=== PATIENT | female | born 1965 | race Caucasian/White ===

== ENCOUNTER → 2016-07-02 | Outpatient (CLI) | payer MEDICARE | LOC: WI 10:48 | PROVIDERS: ATTEND Nurse Practitioner | DX: Z12.31 Encounter for screening mammogram for malignant neoplasm of breast (principal) | CPT/HCPCS: 77067; G0202 ==

== ENCOUNTER 2016-07-08 11:28 | Day surgery (SDC) | payer MEDICARE ==
[~2016-07-08 11:28] MED LIST: PROPOFOL INJ 200 MG/20 ML VIAL IV ONE
--- NOTE | 2016-07-08 13:59 | Operative Report ---
Operative Report DATE OF SURGERY: 07/08/16 Operative Report: The risks benefits and alternatives of the procedure explained to the patient in detail and informed consent is obtained that GIF Olympus video scope was inserted into the patient's mouth and hypopharynx the esophagus is identified intubated and insufflated the scope was then advanced through the esophagus stomach and duodenum retroflexion maneuver is done the esophagus stomach and first and second portions of the duodenum examined PREOPERATIVE DIAGNOSIS: Dysphagia. Preop :anorexia and bulimia. Takes potassium pills POSTOPERATIVE DIAGNOSIS: Esophageal ulceration likely due to pill induced esophagitis. Biopsies obtained rule out Monroy's esophagus, mild stricture noted. Hiatal hernia. Gastritis status post biopsy rule out Helicobacter pylori OPERATION: EGD with biopsy SURGEON: CHAN AGUIAR ANESTHESIA: LMAC TISSUE REMOVED OR ALTERED: Esophageal specimens obtained ;. rule out peptic stricture rule out Monroy's esophagus. Gastritis rule out Helicobacter pylori COMPLICATIONS: None. ESTIMATED BLOOD LOSS: none. INTRAOPERATIVE FINDINGS: Likely pill-induced esophagitis. Hiatal hernia. Stricture noted. Gastritis PROCEDURE: Patient tolerated the procedure well. No immediate postprocedure complications are noted. Patient is discharged in good condition. Discharge date 07/08/2016. Discharge diet: Regular. Discharge activity: Regular. Patient does have a 2-3 week follow-up to discuss findings Discontinue Potassium supplementation We'll await on biopsies Patient is instructed to call the office or proceed to the emergency room should there be any further problems or questions
[2016-07-08 14:42] VITALS: BP 104/77
== END 2016-07-08 14:35 | disposition home or self-care (01) ==
LOC: END 11:28
PROVIDERS: ATTEND Internal Medicine Gastroenterology
PROC: 0DB48ZX Excision of Esophagogastric Junction, Via Natural or Artificial Opening Endoscopic, Diagnostic (ICD-10-PCS; 2016-07-08)
PROC: 0DB68ZX Excision of Stomach, Via Natural or Artificial Opening Endoscopic, Diagnostic (ICD-10-PCS; principal; 2016-07-08 14:30)
DX: K29.50 Unspecified chronic gastritis without bleeding (principal); K22.2 Esophageal obstruction; K44.9 Diaphragmatic hernia without obstruction or gangrene; G40.909 Epilepsy, unspecified, not intractable, without status epilepticus; Z79.82 Long term (current) use of aspirin; Z79.899 Other long term (current) drug therapy; Z80.0 Family history of malignant neoplasm of digestive organs; Z88.2 Allergy status to sulfonamides
CPT/HCPCS: 43239; 88305 ×2; J2704

== ENCOUNTER 2016-11-18 08:18 | Emergency (ER) | payer MEDICARE ==
[2016-11-18] MEDS ORDERED: ONDANSETRON 4 MG TAB.RAPDIS PO ONE (08:58)
--- NOTE | 2016-11-18 09:25 | ER Document Report ---
ED GI/ - General Mode of Arrival: Ambulatory Information source: Patient TRAVEL OUTSIDE OF THE [place] IN LAST 30 DAYS: No - HPI Patient complains to provider of: Other - nausea Associated symptoms: Other - See above - General Chief Complaint: Nausea Stated Complaint: Nausea Time Seen by Provider: 11/18/16 08:57 Notes: Patient is a 50 year old female, with a past medical history including anxiety and bipolar disorder, who presents to the emergency department complaining of nausea. Patient reports she has not felt right for the past month and that it was been worsening. Patient states she was on antibiotics recently and has been taking Levoquin. Patient reports she was seen for a yeast infection by her PCP last week but does not know if she was given anti-fungal medication or not. Patient complains of dry throat and feeling off balance. Patient was told to come to the ED if anything worsened. Patient states that she "feels in a whirl" . PCP: Dr. Chantale Gong ([facility]) - Related Data Allergies/Adverse Reactions: ampicillin [Ampicillin] Allergy (Severe, Verified 11/18/16 08:21) Anaphylaxis ciprofloxacin [From Cipro] Allergy (Severe, Verified 11/18/16 08:21) Anaphylaxis ciprofloxacin HCl [From Cipro] Allergy (Severe, Verified 11/18/16 08:21) Anaphylaxis diphenhydramine HCl [From Benadryl] Allergy (Severe, Verified 11/18/16 08:21) Anxiety Penicillins Allergy (Severe, Verified 11/18/16 08:21) Anaphylaxis Sulfa (Sulfonamide Antibiotics) Allergy (Severe, Verified 11/18/16 08:21) Anaphylaxis Home Medications: Current Home Medications Meclizine HCl 25 mg PO TID 11/18/16 [History] Ondansetron [Zofran Odt] 8 mg PO TID PRN 11/18/16 [History] Ropinirole HCl 1 mg PO TID 11/18/16 [History] Past Medical History - General Information source: Patient - Social History Smoking Status: Unknown if Ever Smoked Family History: Reviewed & Not Pertinent - Past Medical History Cardiac Medical History: Reports: Hx Hypertension Pulmonary Medical History: Reports: Hx Pneumonia - HX Neurological Medical History: Reports: Hx Migraine, Hx Seizures - states she had had one seizure in past Endocrine Medical History: Reports: Hx Hypothyroidism Renal/ Medical History: Reports: Hx Ovarian Cysts Psychiatric Medical History: Reports: Hx Bipolar Disorder, Hx Depression Past Surgical History: Reports: Hx Appendectomy, Hx Section - x2, Hx Cholecystectomy, Hx Tonsillectomy - Immunizations Hx Diphtheria, Pertussis, Tetanus Vaccination: Yes Review of Systems - Review of Systems Constitutional: No symptoms reported EENT: See HPI, Throat pain - dry Cardiovascular: No symptoms reported Respiratory: No symptoms reported Gastrointestinal: See HPI, Nausea Genitourinary: No symptoms reported Female Genitourinary: No symptoms reported Musculoskeletal: No symptoms reported Skin: No symptoms reported Hematologic/Lymphatic: No symptoms reported Neurological/Psychological: See HPI, Other - off balance -: Yes All other systems reviewed and negative Physical Exam - Vital signs Interpretation: Normal - General General appearance: Alert, Anxious - can't sit still - HEENT Head: Normocephalic, Atraumatic Mucous membranes: Dry Pharynx: Other - White adherent material on tongue and posterior pharynx Neck: No: Lymphadenopathy - Respiratory Respiratory status: No respiratory distress Chest status: Nontender Breath sounds: Normal Chest palpation: Normal - Back Back: Normal, Nontender - Extremities General upper extremity: Normal inspection General lower extremity: Normal inspection - Neurological Neuro grossly intact: Yes Cognition: Normal Orientation: AAOx4 [place] Coma Scale Eye Opening: Spontaneous [place] Coma Scale Verbal: Oriented [place] Coma Scale Motor: Obeys Commands Judith Coma Scale Total: 15 Speech: Normal - Psychological Associated symptoms: Normal affect, Normal mood - Skin Skin Temperature: Warm Skin Moisture: Dry Skin Color: Normal Course - Consults Dr. Gong Time consulted: 09:27 - Vital Signs Vital signs: Temp Pulse Resp BP Pulse Ox 87.8 F L 99 18 133/83 H 100 11/18/16 08:21 11/18/16 08:21 11/18/16 08:21 11/18/16 08:21 11/18/16 08:21 - Consults Dr. Gong Reason for consultation: 11/18/16 09:29 Discussed patient's previous treatments by Dr. Gong who states patient was given Clotrimazole lozenges but has not been on any systemic anti- fungal treatment. ([facility]) Discharge - Discharge Clinical Impression: Oral pharyngeal candidiasis Bipolar disorder Qualifiers: Active/Remission status: currently active Current bipolar episode type: hypomanic Qualified Code(s): F31.0 - Bipolar disorder, current episode hypomanic Anxiety disorder Qualifiers: Anxiety disorder type: generalized anxiety disorder Qualified Code(s): F41.1 - Generalized anxiety disorder Condition: Stable Disposition: HOME, SELF-CARE Additional Instructions: Your exam shows oral candidiasis. The treatment for this would be 2 weeks of Diflucan. You are given today's dose, and a prescription to start tomorrow. Continue to drink plenty of water every day. Follow-up with your doctor Friday to recheck your oral yeast infection. Prescriptions: Fluconazole [Diflucan 100 Mg Tablet] 100 mg PO DAILY #14 tablet Scribe Attestation: 11/18/16 09:35 (SHANE KINCAID) Scribe Documentation - Scribe Written by Erica:: erica Vasquez, 11/18/16, 0926 acting as scribe for :: Enrique
[2016-11-18] MEDS ORDERED: LORAZEPAM 1 MG TABLET PO ONE (09:29)
[2016-11-18] MEDS ORDERED: FLUCONAZOLE 100 MG TABLET PO ONE (09:30)
[2016-11-18 09:52] VITALS: BP 132/80
== END 2016-11-18 09:45 | disposition home or self-care (01) ==
LOC: ER 08:18
DX: B37.0 Candidal stomatitis (principal); F41.1 Generalized anxiety disorder; F31.0 Bipolar disorder, current episode hypomanic; R11.0 Nausea; R29.818 Other symptoms and signs involving the nervous system; I10 Essential (primary) hypertension; Z88.8 Allergy status to other drugs, medicaments and biological substances; Z87.892 Personal history of anaphylaxis; Z88.0 Allergy status to penicillin; Z88.1 Allergy status to other antibiotic agents; Z88.2 Allergy status to sulfonamides; Z90.49 Acquired absence of other specified parts of digestive tract
CPT/HCPCS: 99283; A9270 ×3; S0119

== ENCOUNTER 2016-11-27 20:49 | Emergency (ER) | payer MEDICARE ==
--- NOTE | 2016-11-27 21:03 | ER Document Report ---
ED General - General Stated Complaint: CONFUSSION Time Seen by Provider: 11/27/16 20:54 Notes: Old female with extensive history of prescription medication alcohol abuse and apparent eating disorder per her presents with altered mental status. states that she has been walking around the room like a zombie on my as how she has for the past 3 nights when he gets home from work. She has had falls and imbalance and has been "talking crazy." He is concerned about her abusing her prescription meds. He is not concerned about suicidality. The patient to me states that she felt like her sugar was dropping but it was not. She is a little confused. She denies taking her medications tonight but she did take a Xanax and a Phenergan at 8:00 from what she told paramedics. She adamantly denies suicidal ideation. TRAVEL OUTSIDE OF THE [place] IN LAST 30 DAYS: No - Related Data Allergies/Adverse Reactions: ampicillin [Ampicillin] Allergy (Severe, Verified 11/18/16 08:21) Anaphylaxis ciprofloxacin [From Cipro] Allergy (Severe, Verified 11/18/16 08:21) Anaphylaxis ciprofloxacin HCl [From Cipro] Allergy (Severe, Verified 11/18/16 08:21) Anaphylaxis diphenhydramine HCl [From Benadryl] Allergy (Severe, Verified 11/18/16 08:21) Anxiety Penicillins Allergy (Severe, Verified 11/18/16 08:21) Anaphylaxis Sulfa (Sulfonamide Antibiotics) Allergy (Severe, Verified 11/18/16 08:21) Anaphylaxis Past Medical History - Social History Smoking Status: Former Smoker Family History: Reviewed & Not Pertinent - Past Medical History Cardiac Medical History: Reports: Hx Hypertension Denies: Hx Heart Attack Pulmonary Medical History: Reports: Hx Pneumonia - HX Denies: Hx Asthma, Hx Bronchitis, Hx COPD Neurological Medical History: Reports: Hx Migraine, Hx Seizures - states she had had one seizure in past Endocrine Medical History: Reports: Hx Hypothyroidism Renal/ Medical History: Reports: Hx Ovarian Cysts. Denies: Hx Peritoneal Dialysis Psychiatric Medical History: Reports: Hx Bipolar Disorder, Hx Depression Past Surgical History: Reports: Hx Appendectomy, Hx Section - x2, Hx Cholecystectomy, Hx Tonsillectomy. Denies: Hx Bowel Surgery, Hx Hysterectomy, Hx Mastectomy, Hx Tubal Ligation - Immunizations Hx Diphtheria, Pertussis, Tetanus Vaccination: Yes Review of Systems - Review of Systems Notes: REVIEW OF SYSTEMS GEN: Denies fever, chills, weight loss ENT: Denies sore throat, nasal discharge, ear pain EYES: Denies blurry vision, eye pain, discharge CV: Denies chest pain, palpitations, edema RESP: Denies cough, shortness of breath, wheezing GI: Denies abdominal pain, nausea, vomiting, diarrhea MSK: Denies joint pain/swelling, edema, SKIN: Denies rash, skin lesions LYMPH: Denies swollen glands/lymph nodes NEURO: Denies headache, focal weakness or numbness, dizziness PSYCH: Denies depression, suicidal or homicidal ideation PHYSICAL EXAMINATION General: No acute distress, well-nourished Head: Atraumatic, normocephalic ENT: Mouth normal, oropharynx moist, no exudates or tonsillar enlargement Eyes: Conjunctiva normal, pupils equal, lids normal Neck: No JVD, supple, no guarding CVS: Normal rate, regular rhythm, no murmurs Resp: No resp distress, equal and normal breath sounds bilaterally GI: Nondistended, soft, no tenderness to palpation, no rebound or guarding Ext: No deformities, no edema, normal range of motion in upper and lower ext Back: No CVA or midline TTP Skin: No rash, warm Lymphatic: No lymphadeopathy noted Neuro: Awake, alert. Face symmetric. GCS 15. Slurred speech. No nystagmus. Physical Exam - Vital signs Vitals: Temp Pulse Resp BP Pulse Ox 97.6 F 88 16 106/70 99 11/27/16 21:00 11/27/16 21:00 11/27/16 21:00 11/27/16 21:00 11/27/16 21:00 Course - Re-evaluation Re-evalutation: 11/27/16 21:05 51-year-old female presents with slurred speech and slight altered mental status in the setting of known history of addiction. She does not have a particular toxidrome and looks overall quite well. I believe this is in fact a Xanax and Phenergan ingestion does not seem to be an intentional overdose. I had a lengthy conversation with her by phone during which I expressed my concerns. He was initially reticent to come shredder picker the patient, and seems exasperated by her multiple issues. He agreed to come pick her up, and when he gets her I will speak with him about outpatient management of her many psychiatric problems. At this point she will be medically stable for discharge soon. - Vital Signs Vital signs: Temp Pulse Resp BP Pulse Ox 97.6 F 88 16 106/70 99 11/27/16 21:00 11/27/16 21:00 11/27/16 21:00 11/27/16 21:00 11/27/16 21:00 Discharge - Discharge Clinical Impression: Benzodiazepine causing adverse effect in therapeutic use Qualifiers: Encounter type: initial encounter Qualified Code(s): T42.4X5A - Adverse effect of benzodiazepines, initial encounter Condition: Good Disposition: HOME, SELF-CARE Additional Instructions: Seems that your medications are having adverse effects. This may be because you are taking too much, combining them improperly or taking them at the wrong times. It is also concerned about possible eating disorder. All of this together means that you need to contact her primary care doctor as soon as possible for a follow-up appointment to manage her prescriptions and arrange for some outpatient therapy. Please return to the ER immediately if you feel confused, dizzy or have any thoughts of harming herself or anyone else.
[2016-11-27 22:53] VITALS: BP 110/68
== END 2016-11-27 22:45 | disposition home or self-care (01) ==
LOC: ER 20:49
DX: R41.0 Disorientation, unspecified (principal); R47.81 Slurred speech; T42.4X5A Adverse effect of benzodiazepines, initial encounter; I10 Essential (primary) hypertension; F50.9 Eating disorder, unspecified; Z79.899 Other long term (current) drug therapy; Z87.892 Personal history of anaphylaxis; Z88.0 Allergy status to penicillin; Z88.1 Allergy status to other antibiotic agents; Z88.8 Allergy status to other drugs, medicaments and biological substances; Z88.2 Allergy status to sulfonamides; Z87.891 Personal history of nicotine dependence
CPT/HCPCS: 99285

== ENCOUNTER 2016-12-15 13:18 | Emergency (ER) | payer MEDICARE ==
--- NOTE | 2016-12-15 13:30 | ER Document Report ---
ED General - General Chief Complaint: Nausea Stated Complaint: MEDICATION WITHDRAWAL Time Seen by Provider: 12/15/16 13:27 Notes: The patient is a 51-year-old female, past medical history psychiatric illnesses , presents with nausea after her prazosin, benztropine, buspirone, mitrazapine and ropinirole were stopped by her primary care physician 3 days ago. She was started on Prozac instead. She denies hallucinations, suicidal ideations, homicidal ideations, seizures, feelings of tremulousness, chest pain, shortness of breath, vomiting, abdominal pain or diarrhea. TRAVEL OUTSIDE OF THE [place] IN LAST 30 DAYS: No - Related Data Allergies/Adverse Reactions: ampicillin [Ampicillin] Allergy (Severe, Verified 11/18/16 08:21) Anaphylaxis ciprofloxacin [From Cipro] Allergy (Severe, Verified 11/18/16 08:21) Anaphylaxis ciprofloxacin HCl [From Cipro] Allergy (Severe, Verified 11/18/16 08:21) Anaphylaxis diphenhydramine HCl [From Benadryl] Allergy (Severe, Verified 11/18/16 08:21) Anxiety Penicillins Allergy (Severe, Verified 11/18/16 08:21) Anaphylaxis Sulfa (Sulfonamide Antibiotics) Allergy (Severe, Verified 11/18/16 08:21) Anaphylaxis Past Medical History - General Information source: Patient, Emergency Med Personnel - Social History Smoking Status: Current Every Day Smoker Family History: Reviewed & Not Pertinent - Past Medical History Cardiac Medical History: Reports: Hx Hypertension Denies: Hx Heart Attack Pulmonary Medical History: Reports: Hx Pneumonia - HX Denies: Hx Asthma, Hx Bronchitis, Hx COPD Neurological Medical History: Reports: Hx Migraine, Hx Seizures - states she had had one seizure in past Endocrine Medical History: Reports: Hx Hypothyroidism Renal/ Medical History: Reports: Hx Ovarian Cysts. Denies: Hx Peritoneal Dialysis Psychiatric Medical History: Reports: Hx Bipolar Disorder, Hx Depression Past Surgical History: Reports: Hx Appendectomy, Hx Section - x2, Hx Cholecystectomy, Hx Tonsillectomy. Denies: Hx Bowel Surgery, Hx Hysterectomy, Hx Mastectomy, Hx Tubal Ligation - Immunizations Hx Diphtheria, Pertussis, Tetanus Vaccination: Yes Review of Systems - Review of Systems Notes: REVIEW OF SYSTEMS: CONSTITUTIONAL: -fevers, -chills EENT: -eye pain, -difficulty swallowing, -nasal congestion CARDIOVASCULAR:-chest pain, -syncope. RESPIRATORY: -cough, -SOB GASTROINTESTINAL: -abdominal pain, +nausea, -vomiting, -diarrhea GENITOURINARY: -dysuria, -hematuria MUSCULOSKELETAL: -back pain, -neck pain SKIN: -rash or skin lesions. HEMATOLOGIC: -easy bruising or bleeding. LYMPHATIC: -swollen, enlarged glands. NEUROLOGICAL: -altered mental status or loss of consciousness, -headache, - neurologic symptoms PSYCHIATRIC: -anxiety, -depression. ALL OTHER SYSTEMS REVIEWED AND NEGATIVE. Physical Exam - Vital signs Vitals: Temp Pulse Resp BP Pulse Ox 98.7 F 69 16 103/55 L 100 12/15/16 13:33 12/15/16 13:12/15/16 13:12/15/16 13:12/15/16 13:33 - Notes Notes: PHYSICAL EXAMINATION: GENERAL: Well-appearing, well-nourished and in no acute distress. HEAD: Atraumatic, normocephalic. EYES: Pupils equal round and reactive to light, extraocular movements intact, sclera anicteric, conjunctiva are normal. ENT: nares patent, oropharynx clear without exudates. Moist mucous membranes. NECK: Normal range of motion, supple without lymphadenopathy LUNGS: Breath sounds clear to auscultation bilaterally and equal. No wheezes rales or rhonchi. HEART: Regular rate and rhythm without murmurs ABDOMEN: Soft, nontender, normoactive bowel sounds. No guarding, no rebound. No masses appreciated. EXTREMITIES: Normal range of motion, no pitting or edema. No cyanosis. NEUROLOGICAL: Cranial nerves grossly intact. Normal speech, normal gait. Normal sensory and motor exams. PSYCH: Normal mood, normal affect. SKIN: Warm, Dry, normal turgor, no rashes or lesions noted. Course - Re-evaluation Re-evalutation: Patient no longer feeling nauseous after Zofran provided by EMS. None of her medications that were stopped can lead to life-threatening illnesses. She has no evidence of benzodiazepine or alcohol withdrawal at this time. Will have her follow-up with her primary care physician to discuss medication management peer - Vital Signs Vital signs: Temp Pulse Resp BP Pulse Ox 98.7 F 69 16 103/55 L 100 12/15/16 13:33 12/15/16 13:33 12/15/16 13:33 12/15/16 13:33 12/15/16 13:33 Discharge - Discharge Clinical Impression: Nausea Medication withdrawal Qualifiers: Substance type: other psychoactive substance Qualified Code(s): F19.939 - Other psychoactive substance use, unspecified with withdrawal, unspecified Condition: Stable Disposition: HOME, SELF-CARE Additional Instructions: You may take Zofran to help with any nausea. Your medication withdrawal is not life-threatening. Speech your primary care physician and psychiatrist to discuss medication management. Prescriptions: Ondansetron [Zofran Odt 4 mg Tablet] 1 - 2 tab PO Q4H PRN #15 tab.rapdis PRN Reason: For Nausea/Vomiting Referrals: GUANAKO MILLS NP-C [Primary Care Provider] - Follow up as needed
[2016-12-15 13:34] VITALS: BP 103/55
== END 2016-12-15 14:03 | disposition home or self-care (01) ==
LOC: ER 13:18
DX: F19.939 Other psychoactive substance use, unspecified with withdrawal, unspecified (principal); R11.0 Nausea; Z88.8 Allergy status to other drugs, medicaments and biological substances; F17.200 Nicotine dependence, unspecified, uncomplicated; Z87.892 Personal history of anaphylaxis; Z88.2 Allergy status to sulfonamides; Z88.0 Allergy status to penicillin; Z88.1 Allergy status to other antibiotic agents; I10 Essential (primary) hypertension
CPT/HCPCS: 99283

== ENCOUNTER → 2017-01-13 | Outpatient (CLI) | payer MEDICARE ==
[2017-01-13 13:09] LABS: ABSOLUTE EOSINOPHILS # (AUTO) 0.1 10^3/uL (0.0-0.6); ABSOLUTE LYMPHOCYTES (AUTO) 1.9 10^3/uL (0.5-4.7); ABSOLUTE MONOCYTES (AUTO) 0.4 10^3/uL (0.1-1.4); ABSOLUTE NEUT (AUTO) 3.2 10^3/uL (1.7-8.2); BASOPHILS % (AUTO) 0.5 % (0-2); EOSINOPHILS % (AUTO) 2.1 % (0-6); HEMATOCRIT 37.2 % (36.0-47.0); HEMOGLOBIN 12.6 g/dL (12.0-15.5); HGB HCT DIFFERENCE 0.6; LYMPHOCYTES % (AUTO) 33.1 % (13-45); MEAN CORPUSCULAR HEMOGLOBIN 31.3 pg (27.0-33.4); MEAN CORPUSCULAR HGB CONC 33.9 g/dL (32.0-36.0); MEAN CORPUSCULAR VOLUME 92 fl (80-97); MONOCYTES % (AUTO) 7.5 % (3-13); RED BLOOD COUNT 4.04 10^6/uL (3.72-5.28); RED CELL DISTRIBUTION WIDTH 12.7 % (11.5-14.0); SEGMENTED NEUTROPHILS % (AUTO) 56.8 % (42-78); WHITE BLOOD COUNT 5.6 10^3/uL (4.0-10.5)
[2017-01-13 13:16] LABS: ALANINE AMINOTRANSFERASE 32 U/L (9-52); ALBUMIN 3.9 g/dL (3.5-5.0); ALKALINE PHOSPHATASE 72 U/L (38-126); ANION GAP 9 (5-19); ASPARTATE AMINO TRANSFERASE 37 U/L (14-36); BILIRUBIN,DIRECT 0.3 mg/dL (0.0-0.4); BILIRUBIN,TOTAL 0.3 mg/dL (0.2-1.3); BLOOD UREA NITROGEN 20 mg/dL (7-20); CALCIUM 9.5 mg/dL (8.4-10.2); CARBON DIOXIDE 33 mmol/L (22-30); CHLORIDE 99 mmol/L (98-107); CREATININE RESULT 0.66 mg/dL (0.52-1.25); GLUCOSE 86 mg/dL (75-110); POTASSIUM 4.9 mmol/L (3.6-5.0); SODIUM 140.6 mmol/L (137-145); TOTAL PROTEIN 6.7 g/dL (6.3-8.2)
[2017-01-13 13:37] LABS: CREATINE KINASE MB 0.47 ng/mL (<4.55)
[2017-01-13 13:43] LABS: TROPONIN I < 0.012 ng/mL
--- NOTE | 2017-01-13 16:15 | XCELERA REPORT ---
[address] [address] Upper Extremity Venous Evaluation Name: BUD RODRIGUEZ Age: 51 yrs Gender: Female : 1965 Patient Status: Outpatient Patient Location: LAB Study Date: 01/13/2017 12:13 PM Procedure: Unilateral duplex scan of the right upper extremity veins was performed, including responses to compression and other maneuvers. Reason For Study: RUE PAIN Ordering Physician: MADAN GARSIA Performed By: Magui Garza Right Side Venous Evaluation Normal vessel filling wall to wall, compression and augmentation as well as Colour flow down to the forearm veins. Interpretation Summary Normal compression, patency, spontaneous and phasic flow of the right upper extremity veins. : MADAN GARSIA > Hossein Juárez
== END ==
LOC: LAB 11:54
PROVIDERS: ATTEND Nurse Practitioner
DX: M79.601 Pain in right arm (principal); G56.01 Carpal tunnel syndrome, right upper limb
CPT/HCPCS: 36415; 80053; 82553; 84484; 85025; 85379; 93971

== ENCOUNTER 2017-01-18 19:36 | Emergency (ER) | payer MEDICARE ==
--- NOTE | 2017-01-18 20:16 | ER Document Report ---
ED Hip Pain/Injury - General Chief Complaint: Hip Injury Stated Complaint: LEFT HIP PAIN Time Seen by Provider: 01/18/17 19:57 Notes: Patient is a 51-year-old female who comes emergency department for chief complaint of left hip pain. She states that she was swinging around a 2-year- old and dancing with them when she felt like her hip gave out, she felt a pop, she states that she had to go down on the ground because of this. She denies falling or hitting her hip. She states she thinks she popped her hip out of joint. She drove here tonight. She denies hitting her head. Past medical history of bipolar/anxiety, medicated for this. TRAVEL OUTSIDE OF THE [place] IN LAST 30 DAYS: No - Related Data Allergies/Adverse Reactions: ampicillin [Ampicillin] Allergy (Severe, Verified 01/18/17 19:38) Anaphylaxis ciprofloxacin [From Cipro] Allergy (Severe, Verified 01/18/17 19:38) Anaphylaxis ciprofloxacin HCl [From Cipro] Allergy (Severe, Verified 01/18/17 19:38) Anaphylaxis diphenhydramine HCl [From Benadryl] Allergy (Severe, Verified 01/18/17 19:38) Anxiety Penicillins Allergy (Severe, Verified 01/18/17 19:38) Anaphylaxis Sulfa (Sulfonamide Antibiotics) Allergy (Severe, Verified 01/18/17 19:38) Anaphylaxis lurasidone [From Latuda] Allergy (Verified 01/18/17 19:38) Past Medical History - General Information source: Patient - Social History Smoking Status: Never Smoker Frequency of alcohol use: None Drug Abuse: None Lives with: Family Family History: Reviewed & Not Pertinent Patient has suicidal ideation: No Patient has homicidal ideation: No - Past Medical History Cardiac Medical History: Reports: Hx Hypertension Denies: Hx Heart Attack Pulmonary Medical History: Reports: Hx Pneumonia - HX Denies: Hx Asthma, Hx Bronchitis, Hx COPD Neurological Medical History: Reports: Hx Migraine, Hx Seizures - states she had had one seizure in past Endocrine Medical History: Reports: Hx Hypothyroidism Renal/ Medical History: Reports: Hx Ovarian Cysts. Denies: Hx Peritoneal Dialysis Psychiatric Medical History: Reports: Hx Bipolar Disorder, Hx Depression Past Surgical History: Reports: Hx Appendectomy, Hx Section - x2, Hx Cholecystectomy, Hx Tonsillectomy. Denies: Hx Bowel Surgery, Hx Hysterectomy, Hx Mastectomy, Hx Tubal Ligation - Immunizations Hx Diphtheria, Pertussis, Tetanus Vaccination: Yes Review of Systems - Review of Systems Constitutional: No symptoms reported EENT: No symptoms reported Cardiovascular: No symptoms reported Respiratory: No symptoms reported Gastrointestinal: No symptoms reported Genitourinary: No symptoms reported Female Genitourinary: No symptoms reported Musculoskeletal: No symptoms reported Skin: No symptoms reported Hematologic/Lymphatic: No symptoms reported Neurological/Psychological: No symptoms reported Physical Exam - Vital signs Vitals: Temp Pulse Resp BP Pulse Ox 97.9 F 75 18 109/70 96 01/18/17 19:39 01/18/17 19:39 01/18/17 19:39 01/18/17 19:39 01/18/17 19:39 Interpretation: Normal - General General appearance: Appears well, Alert In distress: None - HEENT Head: Normocephalic, Atraumatic Eyes: Normal Pupils: PERRL - Respiratory Respiratory status: No respiratory distress Chest status: Nontender Breath sounds: Normal Chest palpation: Normal - Cardiovascular Rhythm: Regular Heart sounds: Normal auscultation Murmur: No - Abdominal Inspection: Normal Distension: No distension Bowel sounds: Normal Tenderness: Nontender Organomegaly: No organomegaly - Back Back: Normal, Nontender. No: Tender, Vertebra tenderness - Extremities General upper extremity: Normal inspection, Nontender, Normal color, Normal ROM , Normal temperature General lower extremity: Other - Very mildly tender over left groin, there is some tenderness over the left proximal anterior thigh, there is mild tenderness over the left femoral bursa. Normal range of motion of the lower extremities, normal strength, normal distal neurovascular exam. - Neurological Neuro grossly intact: Yes Cognition: Normal Orientation: AAOx4 Judith Coma Scale Eye Opening: Spontaneous Judith Coma Scale Verbal: Oriented [place] Coma Scale Motor: Obeys Commands Judith Coma Scale Total: 15 Speech: Normal Motor strength normal: LUE, RUE, LLE, RLE Sensory: Normal - Psychological Associated symptoms: Normal affect, Normal mood - Skin Skin Temperature: Warm Skin Moisture: Dry Skin Color: Normal Course - Re-evaluation Re-evalutation: Patient moves hip without difficulty but does have pain over the left proximal thigh and bursa mainly. No shortening or abnormal rotation. She is able to ambulate and drove herself here. X-ray imaging shows no deformity, fracture, or abnormality of the hip. Patient' s abdomen exam is unremarkable. No erythema, swelling, or other abnormality suggesting infection. Suspect patient simply strained the musculature/ connective tissue. Discussed this with patient. Providing with muscle relaxer and anti-inflammatory, discussed treatment, follow-up recommendations, return precautions. Patient states understanding and agreement. - Vital Signs Vital signs: Temp Pulse Resp BP Pulse Ox 97.9 F 75 16 103/66 96 01/18/17 19:39 01/18/17 21:28 01/18/17 21:28 01/18/17 21:28 01/18/17 21:28 Discharge - Discharge Clinical Impression: Left hip pain, Left thigh pain Condition: Stable Disposition: HOME, SELF-CARE Additional Instructions: The x-ray is normal. The examination indicates strain of the thigh and pain over the padding of the femur (bursa). Ice the hip 3-4 times a day for the next couple of days, rest, take the medications as prescribed and follow-up with primary care. Return to emergency department for any concerning symptoms including swelling or redness of the area. Prescriptions: Metaxalone [Skelaxin 800 mg Tablet] 800 mg PO ASDIR PRN #20 tablet PRN Reason: Naproxen [Naprosyn 375 Mg Tablet] 375 mg PO BID #20 tablet Referrals: GUANAKO MILLS NP-C [Primary Care Provider] - Follow up as needed
--- NOTE | 2017-01-18 20:34 | RADIOLOGY REPORT (SQ) ---
EXAM DESCRIPTION: HIP LEFT AP/LATERAL COMPLETED DATE/TIME: 01/18/2017 8:09 pm REASON FOR STUDY: hip pain COMPARISON: None. NUMBER OF VIEWS: Two views. TECHNIQUE: AP pelvis and additional frog-leg view of the left hip. LIMITATIONS: None. FINDINGS: MINERALIZATION: Normal. LEFT HIP: No fracture or dislocation. No worrisome bone lesions. RIGHT HIP: No fracture or dislocation. No worrisome bone lesions. PUBIS AND ISCHIUM: No fracture. PELVIS: No fracture. SACRUM: No fracture or dislocation. No worrisome bone lesions. LOWER LUMBAR SPINE: No fracture or dislocation. No worrisome bone lesions. No significant disc disea se. SOFT TISSUES: No findings. OTHER: No other significant finding. IMPRESSION: NEGATIVE STUDY OF THE LEFT HIP AND PELVIS. NO RADIOGRAPHIC EVIDENCE OF ACUTE INJURY. TECHNICAL DOCUMENTATION: JOB ID: [id number] [employer]- All Rights Reserved
[2017-01-18] MEDS ORDERED: KETOROLAC TROMETHAMINE 60 MG/2 ML SDV IM ONE (20:38)
[2017-01-18 21:28] VITALS: BP 103/66
== END 2017-01-18 21:28 | disposition home or self-care (01) ==
LOC: ER 19:36
DX: S79.912A Unspecified injury of left hip, initial encounter (principal); M79.652 Pain in left thigh; X58.XXXA Exposure to other specified factors, initial encounter
CPT/HCPCS: 99283; 96372; 73502; J1885

== ENCOUNTER → 2017-02-14 | Outpatient (CLI) | payer MEDICARE ==
--- NOTE | 2017-02-14 14:47 | RADIOLOGY REPORT (SQ) ---
EXAM DESCRIPTION: FOREARM RIGHT COMPLETED DATE/TIME: 02/14/2017 2:30 pm REASON FOR STUDY: UNSPECIFIED INJURY OF RIGHT FOREARM, INITIAL ENCOUNTER S59.911A UNSPECIFIED INJUR Y OF RIGHT FOREARM, INITIAL ENCOUN S69.91XA UNSP INJURY OF RIGHT WRIST, HAND AND FINGER(S), INI COMPARISON: None. NUMBER OF VIEWS: Two views. TECHNIQUE: Two radiographic images acquired of the right forearm, including elbow and wrist in at le ast one projection. LIMITATIONS: None. FINDINGS: MINERALIZATION: Normal. BONES: No acute fracture. No worrisome bone lesions. SOFT TISSUES: No obvious swelling or foreign body. OTHER: No other significant finding. IMPRESSION: NEGATIVE STUDY OF THE RIGHT FOREARM. NO RADIOGRAPHIC EVIDENCE OF ACUTE INJURY. TECHNICAL DOCUMENTATION: JOB ID: [id number] [employer]- All Rights Reserved
--- NOTE | 2017-02-14 14:48 | RADIOLOGY REPORT (SQ) ---
EXAM DESCRIPTION: HAND RIGHT 3 VIEWS COMPLETED DATE/TIME: 02/14/2017 2:30 pm REASON FOR STUDY: UNSP INJURY OF RIGHT WRIST,HAND AND FINGER (S), INTI ENCNTR S59.911A UNSPECIFIED INJURY OF RIGHT FOREARM, INITIAL ENCOUN S69.91XA UNSP INJURY OF RIGHT WRIST, HAND AND FINGER(S), INI COMPARISON: None. EXAM PARAMETERS: NUMBER OF VIEWS: Three views. TECHNIQUE: AP, lateral and oblique radiographic images acquired of the right hand. LIMITATIONS: None. FINDINGS: MINERALIZATION: Normal. BONES: No acute fracture or dislocation. No worrisome bone lesions. JOINTS: No effusions. SOFT TISSUES: No soft tissue swelling. No foreign body. OTHER: No other significant finding. IMPRESSION: NEGATIVE STUDY OF THE RIGHT HAND. NO RADIOGRAPHIC EVIDENCE OF ACUTE INJURY. TECHNICAL DOCUMENTATION: JOB ID: [id number] [employer]- All Rights Reserved
--- NOTE | 2017-02-14 14:49 | RADIOLOGY REPORT (SQ) ---
EXAM DESCRIPTION: WRIST RIGHT 3 VIEWS COMPLETED DATE/TIME: 02/14/2017 2:30 pm REASON FOR STUDY: UNSP INJURY OF RIGHT WRIST,HAND AND FINGER (S), INTI ENCNTR S59.911A UNSPECIFIED INJURY OF RIGHT FOREARM, INITIAL ENCOUN S69.91XA UNSP INJURY OF RIGHT WRIST, HAND AND FINGER(S), INI COMPARISON: None. NUMBER OF VIEWS: Three views. TECHNIQUE: AP, lateral, and oblique radiographic images acquired of the right wrist. LIMITATIONS: None. FINDINGS: MINERALIZATION: Normal. BONES: No acute fracture or dislocation. No worrisome bone lesions. Normal alignment. SOFT TISSUES: No soft tissue swelling. No foreign body. OTHER: No other significant finding. IMPRESSION: NEGATIVE STUDY OF THE RIGHT WRIST. NO RADIOGRAPHIC EVIDENCE OF ACUTE INJURY. TECHNICAL DOCUMENTATION: JOB ID: [id number] [employer]- All Rights Reserved
== END ==
LOC: OD 13:25
PROVIDERS: ATTEND Nurse Practitioner Acute Care
DX: S59.911A Unspecified injury of right forearm, initial encounter (principal); S69.91XA Unspecified injury of right wrist, hand and finger(s), initial encounter; X58.XXXA Exposure to other specified factors, initial encounter; Y93.9 Activity, unspecified; Y92.9 Unspecified place or not applicable; Y99.9 Unspecified external cause status

== ENCOUNTER 2017-04-10 10:10 | Emergency (ER) | payer MEDICARE, OTHER ==
--- NOTE | 2017-04-10 10:26 | ER Document Report ---
ED General - General Mode of Arrival: Ambulatory Information source: Patient TRAVEL OUTSIDE OF THE [place] IN LAST 30 DAYS: No <ROBERTA CARRENO - Last Filed: 04/10/17 13:23> <DELL PURVIS - Last Filed: 04/10/17 15:07> - General Stated Complaint: UNRESPONSIVE Notes: Patient is a 51 year old female that presents to the emergency department today with complaints of being "unresponsive". Patient was here at the hospital for a "financial meeting" when she became "unresponsive". Bystanders who witnessed this state that the patient stood up to get some water, complaining of not feeling well, and then became unresponsive. Bystanders say no fall occurred. Patient has a long-standing documented mental health history, she has been seen here multiple times with placement to rehab facilities. Patient has been seen here multiple times for attempted overdose as well. Patient was last admitted on 02/28/2017 for detox at [facility]. History is limited. (ROBERTA CARRENO) - Related Data Allergies/Adverse Reactions: ampicillin [Ampicillin] Allergy (Severe, Verified 01/18/17 19:38) Anaphylaxis ciprofloxacin [From Cipro] Allergy (Severe, Verified 01/18/17 19:38) Anaphylaxis ciprofloxacin HCl [From Cipro] Allergy (Severe, Verified 01/18/17 19:38) Anaphylaxis diphenhydramine HCl [From Benadryl] Allergy (Severe, Verified 01/18/17 19:38) Anxiety Penicillins Allergy (Severe, Verified 01/18/17 19:38) Anaphylaxis Sulfa (Sulfonamide Antibiotics) Allergy (Severe, Verified 01/18/17 19:38) Anaphylaxis lurasidone [From Latuda] Allergy (Verified 01/18/17 19:38) haloperidol [From Haldol] Adverse Reaction (Verified 02/28/17 12:38) risperidone [From Risperdal] Adverse Reaction (Verified 02/28/17 12:38) ziprasidone [From Geodon] Adverse Reaction (Verified 02/28/17 12:38) Home Medications: Current Home Medications Citalopram Hydrobromide [Citalopram HBr] 20 mg PO DAILY 04/10/17 [History] Gabapentin [Neurontin 300 mg Capsule] 300 mg PO Q8 04/10/17 [History] Hydroxyzine HCl [Atarax 50 mg Tablet] 50 mg PO Q8 04/10/17 [History] Lorazepam [Ativan 1 mg Tablet] 1 mg PO Q12 04/10/17 [History] Mirtazapine [Remeron] 30 mg PO QHS 04/10/17 [History] Naproxen [Naprosyn 250 mg Tablet] 250 mg PO Q12 04/10/17 [History] Oxcarbazepine [Trileptal] 300 mg PO Q8 04/10/17 [History] Topiramate [Topamax] 50 mg PO QHS 04/10/17 [History] Trazodone HCl [Desyrel 50 mg Tablet] 50 mg PO QHS 04/10/17 [History] Past Medical History - General Information source: [facility] Records - Social History Smoking Status: Unknown if Ever Smoked Family History: Reviewed & Not Pertinent - Past Medical History Cardiac Medical History: Reports: Hx Hypertension Pulmonary Medical History: Reports: Hx Pneumonia - HX Neurological Medical History: Reports: Hx Migraine, Hx Seizures - states she had had one seizure in past Endocrine Medical History: Reports: Hx Hypothyroidism Renal/ Medical History: Reports: Hx Ovarian Cysts Psychiatric Medical History: Reports: Hx Bipolar Disorder, Hx Depression Past Surgical History: Reports: Hx Appendectomy, Hx Section - x2, Hx Cholecystectomy, Hx Tonsillectomy - Immunizations Hx Diphtheria, Pertussis, Tetanus Vaccination: Yes <ROBERTA CARRENO - Last Filed: 04/10/17 13:23> Review of Systems - Review of Systems -: Yes ROS unobtainable due to patient's medical condition <ROBERTA CARRENO - Last Filed: 04/10/17 13:23> Physical Exam <ROBERTA CARRENO - Last Filed: 04/10/17 13:23> <DELL PURVIS - Last Filed: 04/10/17 15:07> - Notes Notes: Physical Exam: General: Appeared to be unresponsive upon entry into ED HEENT: Normocephalic. Atraumatic. PERRL. Extraocular movements intact. Oropharynx clear. Neck: Supple. Non-tender. Respiratory: No respiratory distress. Clear and equal breath sounds bilaterally. Cardiovascular: Regular rate and rhythm. Abdominal: Normal Inspection. Non-tender. No distension. Normal Bowel Sounds. Back: Non-tender. No deformity or step off. Extremities: Moves all four extremities. Upper extremities: Normal inspection. Normal ROM. Lower extremities: Normal inspection. No edema. Normal ROM. Skin: Warm. Dry. Normal color. (ROBERTA CARRENO) Course - Laboratory Result Diagrams: 04/10/17 10:17 04/10/17 10:17 <ROBERTA CARRENO - Last Filed: 04/10/17 13:23> - Laboratory Result Diagrams: 04/10/17 10:17 04/10/17 10: <DELL PURVIS - Last Filed: 04/10/17 15:07> - Re-evaluation Re-evalutation: 04/10/17 13:23 Patient is now communicative and able to give a better history. Patient states she has been sent to Dr. Ni, neurology, for "memory loss" and was scheduled to have an MRI done. Patient states she was here to bring her taxes to show the financial help staff here at the hospital when she began feeling dizzy, she describes this dizziness as carsickness, and she states it feels like she was "floating outside of her body". Patient states that is the last thing she remembers. Patient states she has not been sleeping well recently despite having her trazodone strength increased. Patient states she has been having leg and hand cramps recently. Patient states she had a low potassium 2 or 3 years ago and was once on potassium supplementation. (ROBERTA CARRENO) 04/10/17 15:06 Patient appears well at this time would like to go home. Potassium has been replaced. Patient has had hypokalemia in the past. Patient is leaving to out of town to visit her father this weekend. States that she will follow-up with her primary care doctor here or there and have repeat potassium. Patient is supposed to have an MRI as an outpatient. Patient is neurovascularly intact and does not warrant MRI today. I have discussed this with her neurologist office who states that she will have a brain with and without contrast ordered this week. Patient is comfortable going home and agreeable to this plan. Stable for discharge. (DELL PURVIS) - Laboratory Laboratory results interpreted by me: 04/10/17 04/10/17 04/10/17 10: 10: 10:55 RDW 14.1 H Potassium 2.9 L* Glucose 115 H AST 40 H Urine Protein 30 H Urine Urobilinogen 2.0 H Ur Leukocyte Esterase TRACE H Salicylates < 1.0 L Acetaminophen < 10 L Discharge <ROBERTA CARRENO - Last Filed: 04/10/17 13:23> <DELL PURVIS - Last Filed: 04/10/17 15:07> - Discharge Clinical Impression: Hypokalemia Syncope Qualifiers: Syncope type: unspecified Qualified Code(s): R55 - Syncope and collapse Condition: Stable Disposition: HOME, SELF-CARE Instructions: Hypokalemia ([facility]), Syncopal Episode ([facility]) Additional Instructions: Please follow-up for your MRI that will be scheduled by your neurologist. Please make sure that you have your potassium checked next week and dosed accordingly Forms: Follow-Up Laboratory Testing Referrals: GUANAKO MILLS NP-C [Primary Care Provider] - Follow up in 3-5 days Scribe Attestation: 04/10/17 15:07 I personally performed the services described in the documentation, reviewed and edited the documentation which was dictated to the scribe in my presence, and it accurately records my words and actions. (DELL PURVIS) Scribe Documentation - Scribe Written by Jelly:: Jelly Vaca, 04/10/2017 1103 acting as scribe for :: Patrica <ROBERTA CARRENO - Last Filed: 04/10/17 13:23>
[2017-04-10] MEDS ORDERED: NORMAL SALINE 1000 ML 1,000 ML IV ONE (10:27)
[2017-04-10 10:31] LABS: ABSOLUTE BASOPHILS # (AUTO) 0.1 10^3/uL (0.0-0.2); ABSOLUTE EOSINOPHILS # (AUTO) 0.1 10^3/uL (0.0-0.6); ABSOLUTE LYMPHOCYTES (AUTO) 2.5 10^3/uL (0.5-4.7); ABSOLUTE MONOCYTES (AUTO) 0.4 10^3/uL (0.1-1.4); ABSOLUTE NEUT (AUTO) 2.8 10^3/uL (1.7-8.2); EOSINOPHILS % (AUTO) 1.4 % (0-6); HEMATOCRIT 40.5 % (36.0-47.0); HEMOGLOBIN 13.6 g/dL (12.0-15.5); HGB HCT DIFFERENCE 0.3; MEAN CORPUSCULAR HEMOGLOBIN 28.9 pg (27.0-33.4); MEAN CORPUSCULAR HGB CONC 33.5 g/dL (32.0-36.0); MEAN CORPUSCULAR VOLUME 86 fl (80-97); MONOCYTES % (AUTO) 7.2 % (3-13); RED BLOOD COUNT 4.69 10^6/uL (3.72-5.28); RED CELL DISTRIBUTION WIDTH 14.1 % (11.5-14.0); SEGMENTED NEUTROPHILS % (AUTO) 47.4 % (42-78); WHITE BLOOD COUNT 5.9 10^3/uL (4.0-10.5)
[2017-04-10 10:58] LABS: ALANINE AMINOTRANSFERASE 20 U/L (9-52); ALBUMIN 4.1 g/dL (3.5-5.0); ALKALINE PHOSPHATASE 98 U/L (38-126); ANION GAP 12 (5-19); ASPARTATE AMINO TRANSFERASE 40 U/L (14-36); BILIRUBIN,DIRECT 0.2 mg/dL (0.0-0.4); BILIRUBIN,TOTAL 0.2 mg/dL (0.2-1.3); BLOOD UREA NITROGEN 11 mg/dL (7-20); CALCIUM 9.4 mg/dL (8.4-10.2); CARBON DIOXIDE 30 mmol/L (22-30); CHLORIDE 98 mmol/L (98-107); CREATININE RESULT 0.83 mg/dL (0.52-1.25); GLUCOSE 115 mg/dL (75-110); SODIUM 139.6 mmol/L (137-145); TOTAL PROTEIN 6.8 g/dL (6.3-8.2)
[2017-04-10 10:59] LABS: ALCOHOL < 10 mg/dL (NONE DETECTED)
[2017-04-10 11:05] LABS: POTASSIUM 2.9 mmol/L (3.6-5.0)
[2017-04-10 11:33] LABS: AMORPHOUS SEDIMENT,URINE TRACE /HPF; APPEARANCE,URINE CLOUDY; BILIRUBIN,URINE NEGATIVE (NEGATIVE); GLUCOSE, URINE NEGATIVE (NEGATIVE); KETONES,URINE NEGATIVE (NEGATIVE); LEUKOCYTE ESTERASE,URINE TRACE (NEGATIVE); NITRITE,URINE NEGATIVE (NEGATIVE); PROTEIN,URINE 30 mg/dL (NEGATIVE); URINE SPECIFIC GRAVITY 1.016
[2017-04-10] MEDS ORDERED: POTASSIUM CHLORIDE 10 MEQ TABLET.SA PO ONE (11:35)
[2017-04-10 12:00] LABS: URINE BARBITURATES SCREEN NEGATIVE; URINE METHADONE SCREEN NEGATIVE; URINE OPIATES LOW NEGATIVE; URINE PHENCYCLIDINE SCREEN NEGATIVE
[2017-04-10] MEDS: POTASSI CL 20 MEQ/50 ML RIDER 20 MEQ/50 ML RTUPB IV SCH ×2 (12:12→13:56)
--- NOTE | 2017-04-10 12:59 | EKG REPORT ---
SEVERITY:- ABNORMAL ECG - SINUS RHYTHM LEFT AXIS DEVIATION LVH WITH SECONDARY REPOLARIZATION ABNORMALITY : Confirmed by: Celestino Nam 10-Apr-2017 12:57:56
[2017-04-10 16:10] VITALS: BP 119/71
== END 2017-04-10 16:10 | disposition home or self-care (01) ==
LOC: ER 10:10
DX: E87.6 Hypokalemia (principal); R55 Syncope and collapse; I10 Essential (primary) hypertension; R25.2 Cramp and spasm; F31.9 Bipolar disorder, unspecified; Z79.899 Other long term (current) drug therapy; Z87.892 Personal history of anaphylaxis; Z88.0 Allergy status to penicillin; Z88.8 Allergy status to other drugs, medicaments and biological substances; Z88.2 Allergy status to sulfonamides
CPT/HCPCS: 93005; 99284; 96361; 96365; 96366; 36415; 80307 ×4; 85025; 80053; 81001; 93010; J3480; J7030; A9270

== ENCOUNTER 2018-02-13 09:56 | Day surgery (SDC) | payer MEDICARE ==
[~2018-02-13 09:56] MED LIST changes: +MIDAZOLAM 2 MG/2 ML INJ ONE; +ONDANSETRON HCL INJ/PF 4 MG/2 ML SDV ONE
[2018-02-13] MEDS ORDERED: MORPHINE SULFATE 10 MG/ML INJ IV PRN (10:56)
[2018-02-13] MEDS ORDERED: ONDANSETRON HCL INJ/PF 4 MG/2 ML SDV IV PRN (10:56)
[2018-02-13] MEDS ORDERED: FENTANYL CITRATE INJ/PF 100 MCG/2 ML AMPUL IV PRN ×3 (10:56)
[2018-02-13] MEDS ORDERED: DIPHENHYDRAMINE HCL 50 MG/ML VIAL IV PRN (10:56)
[2018-02-13] MEDS ORDERED: PROMETHAZINE HCL INJ 25 MG/1 ML VIAL IV PRN ×2 (10:56)
[2018-02-13] MEDS ORDERED: MEPERIDINE HCL/PF INJ 25 MG/1 ML DISP.SYRIN IV PRN (10:56)
--- NOTE | 2018-02-13 11:47 | Operative Report ---
Operative Report DATE OF SURGERY: 02/13/18 Operative Report: The risks, benefits and alternatives of the procedure including the risks of bleeding, perforation requiring surgery are explained to the patient in detail and informed consent is obtained. Patient is placed in the left, lateral decubital position. Timeout was called. Propofol medication is administered. A rectal examination is done which did not reveal any masses, tears or fissures. An Olympus videoscope was inserted into the patient's rectum. The scope was then carefully advanced all the way to the cecum. The cecum was identified by the usual anatomical landmarks including the ileocecal valve as well as the appendiceal office. Photodocumentation is obtained. The scope was then sequentially pulled back via the rest segments of the colon including the ascending colon, hepatic flexure, transverse colon, splenic flexure, descending colon and finding to the rectosigmoid portions of the colon. Retroflexion maneuvers performed. PREOPERATIVE DIAGNOSIS: Personal history of polyp POSTOPERATIVE DIAGNOSIS: Descending colon polyp that was removed via snare polypectomy and retrieved. Internal hemorrhoids OPERATION: Colonoscopy with snare polypectomy SURGEON: CHAN AGUIAR ANESTHESIA: LMAC TISSUE REMOVED OR ALTERED: As noted above. COMPLICATIONS: None. ESTIMATED BLOOD LOSS: None. INTRAOPERATIVE FINDINGS: As noted above. PROCEDURE: Patient tolerated the procedure well. No immediate postprocedure complications are noted. Patient discharged in good condition. Discharge date 02/13/2018. Discharge diet: Regular. Discharge activity: Regular. 2-3-week follow-up to discuss findings. Patient is instructed call the office or proceed to the emergency room should there be any further proximal questions. Wait on the pathology. 3-5-year surveillance colonoscopy.
[2018-02-13 13:17] VITALS: BP 108/72
== END 2018-02-13 12:45 | disposition home or self-care (01) ==
LOC: OROUT 09:56
PROVIDERS: ATTEND Internal Medicine Gastroenterology
DX: D12.4 Benign neoplasm of descending colon (principal); K64.8 Other hemorrhoids; Z86.010 Personal history of colon polyps; D64.9 Anemia, unspecified; M19.90 Unspecified osteoarthritis, unspecified site; Z79.82 Long term (current) use of aspirin; Z79.899 Other long term (current) drug therapy; Z79.1 Long term (current) use of non-steroidal anti-inflammatories (NSAID); Z88.0 Allergy status to penicillin; Z88.1 Allergy status to other antibiotic agents; Z88.2 Allergy status to sulfonamides; Z87.891 Personal history of nicotine dependence; Z87.892 Personal history of anaphylaxis
CPT/HCPCS: 45385; 88305 ×2; J2250; J2405; J2704; 811

== ENCOUNTER → 2018-02-25 | Outpatient (CLI) | payer MEDICARE ==
--- NOTE | 2018-02-25 09:48 | WOMENS IMAGING REPORT ---
EXAM DESCRIPTION: BONE DENSITY HIP/SPINE COMPLETED DATE/TIME: 02/25/2018 9:36 am REASON FOR STUDY: BONE DENSITY TEST/ M78.0 Z12.31 ENCNTR SCREEN MAMMOGRAM FOR MALIGNANT NEOPLASM OF CARMELINA Z78.0 ASYMPTOMATIC MENOPAUSAL STATE COMPARISON: None. TECHNIQUE: Dual-Energy X-ray Absorptiometry (DEXA) of the AP Spine and Hip. LIMITATIONS: None. FINDINGS: LUMBAR SPINE: The bone mineral density (BMD) measured from L1-L4 in the AP projection correlates with a T-score of -0.6, which is normal as defined by the World Health Organization. HIP: The bone mineral density (BMD) measured in the left hip correlates with a T-score of -2.6, which is o steoporosis as defined by the World Health Organization. IMPRESSION: 1. LUMBAR SPINE: NORMAL. 2. HIP: OSTEOPOROSIS. COMMENT: The World Health Organization defines low BMD as follows: T-score: Normal: Greater than -1.0 Osteopenia: Between -1.0 and -2.5 Osteoporosis: Less than -2.5 without fractures Established osteoporosis: Less than -2.5 with fractures In general, you may wish to consider: Diagnosis Treatment Follow-up DEXA Normal BMD Prevention 2-3 years Osteopenia Prevention/Therapy 1-2 years Osteoporosis Therapy Yearly TECHNICAL DOCUMENTATION: JOB ID: [id number] [employer]- All Rights Reserved Reading location - IP/workstation name: [email or web address]
--- NOTE | 2018-02-25 09:58 | WOMENS IMAGING REPORT ---
EXAM DESCRIPTION: BILAT SCREENING MAMMO W/CAD COMPLETED DATE/TIME: 02/25/2018 9:36 am REASON FOR STUDY: BILATERAL SCREENING MAMMO /Z12.31 Z12.31 ENCNTR SCREEN MAMMOGRAM FOR MALIGNANT NE OPLASM OF CARMELINA Z78.0 ASYMPTOMATIC MENOPAUSAL STATE COMPARISON: 07/02/2016. TECHNIQUE: Standard craniocaudal and mediolateral oblique views of each breast recorded using digita l acquisition. LIMITATIONS: None. FINDINGS: No masses, calcifications or architectural distortion. No areas of suspicion. Read with the assistance of CAD. .[facility] - R2 C[employer]ova Version 1.3 .[facility] - R2 Cenova Version 1.3 .[facility] - R2 Cenova Version 2.4 .[facility] [place] R2 Cenova Version 2.4 .[facility] - R2 Customer Acquisition Manager Version 9.2 IMPRESSION: NORMAL MAMMOGRAM. BIRADS 1. BREAST DENSITY: b. There are scattered areas of fibroglandular density. BIRAD: 1 NEGATIVE RECOMMENDATION: ROUTINE SCREENING COMMENT: The patient has been notified of the results by letter per MQSA requirements. Additional no tification policies are in place for contacting patient with suspicious or incomplete findings. Quality ID #[id number]: The [employer] recommends an annual screening mammogram for women aged 40 years or over. This facility utilizes a reminder system to ensure that all patients receive reminder letters, and/or direct phone calls for appointments. This includes reminders for routine scr eening mammograms, diagnostic mammograms, or other Breast Imaging Interventions when appropriate. Th is patient will be placed in the appropriate reminder system. The [employer] [place] [employer] (ACR) has developed recommendations for screening MRI of the breast s in certain patient populations, to be used in conjunction with mammography. Breast MRI surveillanc e may be appropriate for women with more than 20% lifetime risk of developing breast cancer as deter mined by genetic testing, significant family history of the disease, or history of mantle radiation f or Hodgkins Disease. ACR Practice Guidelines 2008. TECHNICAL DOCUMENTATION: FINDING NUMBER: (1) ASSESSMENT: (1) JOB ID: [id number] [email or web address]- All Rights Reserved Reading location - IP/workstation name: [email or web address]
== END ==
LOC: WI 08:07
PROVIDERS: ATTEND Nurse Practitioner Family
DX: Z12.31 Encounter for screening mammogram for malignant neoplasm of breast (principal); Z78.0 Asymptomatic menopausal state; M81.0 Age-related osteoporosis without current pathological fracture
CPT/HCPCS: 77067; 77080

== ENCOUNTER 2018-05-24 14:10 | Emergency (ER) | payer MEDICARE ==
[2018-05-24 14:28] VITALS: BP 148/90
[2018-05-24] MEDS ORDERED: ONDANSETRON 4 MG TAB.RAPDIS PO ONE (14:34)
--- NOTE | 2018-05-24 14:39 | ER Document Report ---
ED GI/ - General Chief Complaint: Nausea/Vomiting/Diarrhea Stated Complaint: VOMITING Time Seen by Provider: 05/24/18 14:30 Primary Care Provider: PROSPER GARCIA FNP-C [Primary Care Provider] - Follow up as needed Mode of Arrival: Ambulatory Information source: Patient, [facility] Records Notes: This 52-year-old female patient reports deciding to stop smoking 1 week ago. The next day on Friday she developed nausea vomiting diarrhea. She states the diarrhea stopped and the vomiting stopped but she still feels queasy. She states she has been drinking lots of Gatorade and water but still feels dehydrated. She states her mouth still feels dry, and she is concerned about her kidneys. Vital signs shows that she is not tachycardic. TRAVEL OUTSIDE OF THE [place] IN LAST 30 DAYS: No - Related Data Allergies/Adverse Reactions: ampicillin [Ampicillin] Allergy (Severe, Verified 05/24/18 14:11) Anaphylaxis ciprofloxacin [From Cipro] Allergy (Severe, Verified 05/24/18 14:11) Anaphylaxis ciprofloxacin HCl [From Cipro] Allergy (Severe, Verified 05/24/18 14:11) Anaphylaxis diphenhydramine HCl [From Benadryl] Allergy (Severe, Verified 05/24/18 14:11) Anxiety lurasidone [From Latuda] Allergy (Severe, Verified 05/24/18 14:11) Anaphylaxis Penicillins Allergy (Severe, Verified 05/24/18 14:11) Anaphylaxis Sulfa (Sulfonamide Antibiotics) Allergy (Severe, Verified 05/24/18 14:11) Anaphylaxis haloperidol [From Haldol] Adverse Reaction (Severe, Verified 05/24/18 14:11) Anaphylaxis risperidone [From Risperdal] Adverse Reaction (Severe, Verified 05/24/18 14:11) Anaphylaxis ziprasidone [From Geodon] Adverse Reaction (Severe, Verified 05/24/18 14:11) Anaphylaxis latex Adverse Reaction (Verified 05/24/18 14:11) Blistering Past Medical History - General Information source: Patient, [facility] Records - Social History Smoking Status: Former Smoker Cigarette use (# per day): No - Quit 1 week ago Chew tobacco use (# tins/day): No Smoking Education Provided: No Frequency of alcohol use: None Drug Abuse: None Lives with: Spouse/Significant other Family History: Reviewed & Not Pertinent Patient has suicidal ideation: No Patient has homicidal ideation: No Pulmonary Medical History: Reports: Hx Pneumonia - HX OF Neurological Medical History: Reports: Hx Migraine, Hx Seizures - 1 FROM [facility] Endocrine Medical History: Reports: Hx Hypothyroidism Renal/ Medical History: Reports: Hx Ovarian Cysts Psychiatric Medical History: Reports: Hx Bipolar Disorder, Hx Depression Past Surgical History: Reports: Hx Appendectomy, Hx Section - x2, Hx Cholecystectomy, Hx Tonsillectomy - Immunizations Hx Diphtheria, Pertussis, Tetanus Vaccination: Yes Hx Pneumococcal Vaccination: 04/28/15 Review of Systems - Review of Systems Constitutional: Weakness, Other - Fatigue EENT: Other - Mouth feels dry Cardiovascular: No symptoms reported Respiratory: No symptoms reported Gastrointestinal: No symptoms reported, See HPI Genitourinary: No symptoms reported Female Genitourinary: Post menopausal Musculoskeletal: No symptoms reported Skin: No symptoms reported Hematologic/Lymphatic: No symptoms reported Neurological/Psychological: Depression, Anxiety Physical Exam - Vital signs Vitals: Temp Pulse Resp BP Pulse Ox 98.6 F 74 18 148/90 H 95 05/24/18 14:27 05/24/18 14:27 05/24/18 14:27 05/24/18 14:27 05/24/18 14:27 - General General appearance: Appears well, Alert In distress: None - HEENT Head: Normocephalic, Atraumatic Eyes: Normal Pupils: PERRL Mucous membranes: Dry - Tongue seems to be a little bit coated. Pharynx: Normal Neck: Normal - Respiratory Respiratory status: No respiratory distress Breath sounds: Normal - Cardiovascular Rhythm: Regular Heart sounds: Normal auscultation Murmur: No - Abdominal Inspection: Normal Bowel sounds: Normal Tenderness: Nontender - Back Back: Normal - Extremities General upper extremity: Normal inspection General lower extremity: Normal inspection - Neurological Neuro grossly intact: Yes - Psychological Associated symptoms: Normal affect, Normal mood - Skin Skin Temperature: Warm Skin Moisture: Dry Skin Color: Normal Course - Re-evaluation Re-evalutation: 05/24/18 15:53 Patient's BUN is 7, urine specific gravity is 1.008, it is obvious that she is not dehydrated at this point. - Vital Signs Vital signs: Temp Pulse Resp BP Pulse Ox 98.6 F 74 18 148/90 H 95 05/24/18 14:27 05/24/18 14:27 05/24/18 14:27 05/24/18 14:27 05/24/18 14:27 - Laboratory Result Diagrams: 05/24/18 14:45 05/24/18 14:45 Laboratory results interpreted by me: 05/24/18 05/24/18 14:45 14:45 WBC 3.0 L Absolute Neutrophils 1.6 L Sodium 130.5 L Chloride 97 L AST 13 L Discharge - Discharge Clinical Impression: Nausea, vomiting and diarrhea Condition: Stable Disposition: HOME, SELF-CARE Additional Instructions: Gastroenteritis: You most likely had gastroenteritis. This is an irritation of the stomach and intestinal tract. It's usually caused by a virus, but can also be caused by bacteria, toxins that cause food poisoning, or excessive alcohol intake. Symptoms may include fever, painful abdominal cramps, nausea, vomiting, and diarrhea. Start with small amounts (two to six ounces) of clear liquids (soft drinks, herb teas, broth, etc). Try to take fluids frequently even if you are vomiting, to prevent dehydration. When liquids are being consumed successfully, advance to small amounts of bland food (mashed potato, toast) for 6 - 12 hours. Gastroenteritis rarely requires medication. It goes away by itself. Use good handwashing so you don't spread germs. Wash underwear in very hot water. If symptoms are severe, talk to the doctor. Call your physician if blood appears in your vomitus or stool, if vomiting lasts longer than 24 hours, if the abdominal pain worsens or becomes localized to one area, or if you develop high fever. Your lab work would suggest that you are keeping down plenty of fluids at this point. You should continue to drink plenty of fluids throughout the day in the evening. Take the Zofran as dispensed for nausea if needed. Get plenty of rest and sleep. Follow-up with a local primary care provider if not tingling to improve over the next few days. RETURN TO THE EMERGENCY ROOM IF ANY NEW OR WORSENING SYMPTOMS. Referrals: PROSPER GARCIA FNP-C [Primary Care Provider] - Follow up as needed
[2018-05-24 14:59] LABS: ABSOLUTE LYMPHOCYTES (AUTO) 1.1 10^3/uL (0.5-4.7); ABSOLUTE MONOCYTES (AUTO) 0.3 10^3/uL (0.1-1.4); ABSOLUTE NEUT (AUTO) 1.6 10^3/uL (1.7-8.2); BASOPHILS % (AUTO) 1.1 % (0-2); EOSINOPHILS % (AUTO) 0.9 % (0-6); HEMOGLOBIN 13.2 g/dL (12.0-15.5); LYMPHOCYTES % (AUTO) 34.9 % (13-45); MEAN CORPUSCULAR HEMOGLOBIN 30.2 pg (27.0-33.4); MEAN CORPUSCULAR HGB CONC 33.8 g/dL (32.0-36.0); MEAN CORPUSCULAR VOLUME 90 fl (80-97); MONOCYTES % (AUTO) 8.9 % (3-13); PLATELET COUNT 243 10^3/uL (150-450); RED BLOOD COUNT 4.36 10^6/uL (3.72-5.28); RED CELL DISTRIBUTION WIDTH 12.5 % (11.5-14.0); SEGMENTED NEUTROPHILS % (AUTO) 54.2 % (42-78); TOTAL CELLS COUNTED % (AUTO) 100 %
[2018-05-24 15:09] LABS: APPEARANCE,URINE CLEAR; BILIRUBIN,URINE NEGATIVE (NEGATIVE); COLOR,URINE STRAW; GLUCOSE, URINE NEGATIVE (NEGATIVE); KETONES,URINE NEGATIVE (NEGATIVE); LEUKOCYTE ESTERASE,URINE NEGATIVE (NEGATIVE); NITRITE,URINE NEGATIVE (NEGATIVE); PROTEIN,URINE NEGATIVE (NEGATIVE); URINE SPECIFIC GRAVITY 1.008; UROBILINOGEN,URINE NEGATIVE mg/dL (<2.0)
[2018-05-24 15:16] LABS: ALANINE AMINOTRANSFERASE 13 U/L (9-52); ALBUMIN 4.3 g/dL (3.5-5.0); ALKALINE PHOSPHATASE 72 U/L (38-126); ANION GAP 9 (5-19); ASPARTATE AMINO TRANSFERASE 13 U/L (14-36); BILIRUBIN,DIRECT 0.3 mg/dL (0.0-0.4); BILIRUBIN,TOTAL 0.3 mg/dL (0.2-1.3); BLOOD UREA NITROGEN 7 mg/dL (7-20); CALCIUM 9.3 mg/dL (8.4-10.2); CARBON DIOXIDE 25 mmol/L (22-30); CHLORIDE 97 mmol/L (98-107); GLUCOSE 88 mg/dL (75-110); POTASSIUM 4.6 mmol/L (3.6-5.0); SODIUM 130.5 mmol/L (137-145); TOTAL PROTEIN 6.7 g/dL (6.3-8.2)
[2018-05-24] MEDS ORDERED: ONDANSETRON ODT 4 MG TAB (6 TAB/ER DISP) PO PRN (15:54)
== END 2018-05-24 16:01 | disposition home or self-care (01) ==
LOC: ER 14:10
DX: R11.2 Nausea with vomiting, unspecified (principal); R19.7 Diarrhea, unspecified; Z88.0 Allergy status to penicillin; Z88.2 Allergy status to sulfonamides; Z88.3 Allergy status to other anti-infective agents; Z91.040 Latex allergy status; Z90.49 Acquired absence of other specified parts of digestive tract
CPT/HCPCS: 99284; 36415; 85025; 80053; 81001; A9270 ×2; S0119

== ENCOUNTER 2018-09-21 12:18 | Emergency (ER) | payer MEDICARE ==
--- NOTE | 2018-09-21 12:50 | ER Document Report ---
ED Medical Screen (RME) - General Chief Complaint: Dizziness Stated Complaint: DIZZINESS Time Seen by Provider: 09/21/18 12:42 Primary Care Provider: PROSPER GARCIA FNP-C [Primary Care Provider] - Follow up as needed TRAVEL OUTSIDE OF THE [place] IN LAST 30 DAYS: No - HPI Notes: 09/21/18 12:46 Patient is a 52-year-old female with a history of bipolar and other mental health disorder who presents complaining of feeling cloudy, occasional dizziness, nauseous, and some confusion for the past 6 days since her medicines were changed. Patient states that she will at times forget a conversation, but has not had any other issues with confusion. Patient states that she was increased on her Lamictal, but was not able to function with that and made symptoms worse. Patient states that she did not feel this bad until her medicine started getting adjusted. Patient states that she has felt anxious recently. She has been able to eat and drink, but does have a decreased appetit e. She is urinating normally and having normal bowel movements. No SI/HI. Denies MUÑOZ, fever, changes in vision, neck pain, URI, CP, SOB, Abd pain, or rash. I have treated and performed a rapid initial assessment of this patient. A comprehensive ED assessment and evaluation of the patient, analysis of test results and completion of medical decision making process will be conducted by additional ED providers. PHYSICAL EXAMINATION: GENERAL: Well-appearing, well-nourished and in no acute distress. A&Ox4. Answers questions appropriately. Eyes: PERRLA, EOMI b/l. No nystagmus LUNGS: Breath sounds clear to auscultation bilaterally and equal. No wheezes rales or rhonchi. HEART: Regular rate and rhythm without murmurs, rubs, gallops. ABDOMEN: Soft, nondistended abdomen. No guarding, no rebound. Normal bowel sounds present. No CVA tenderness bilaterally. Grossly nontender (cannot elicit thorough abd exam w/o table, however). Extremities: No cyanosis, clubbing, or edema b/l. NEUROLOGICAL: Normal speech, normal gait. Cranial nerves grossly intact. NIH 0. PSYCH: Anxious, tearful - Related Data Allergies/Adverse Reactions: ampicillin [Ampicillin] Allergy (Severe, Verified 05/24/18 14:11) Anaphylaxis ciprofloxacin [From Cipro] Allergy (Severe, Verified 05/24/18 14:11) Anaphylaxis ciprofloxacin HCl [From Cipro] Allergy (Severe, Verified 05/24/18 14:11) Anaphylaxis diphenhydramine HCl [From Benadryl] Allergy (Severe, Verified 05/24/18 14:11) Anxiety lurasidone [From Latuda] Allergy (Severe, Verified 05/24/18 14:11) Anaphylaxis Penicillins Allergy (Severe, Verified 05/24/18 14:11) Anaphylaxis Sulfa (Sulfonamide Antibiotics) Allergy (Severe, Verified 05/24/18 14:11) Anaphylaxis haloperidol [From Haldol] Adverse Reaction (Severe, Verified 05/24/18 14:11) Anaphylaxis risperidone [From Risperdal] Adverse Reaction (Severe, Verified 05/24/18 14:11) Anaphylaxis ziprasidone [From Geodon] Adverse Reaction (Severe, Verified 05/24/18 14:11) Anaphylaxis latex Adverse Reaction (Verified 05/24/18 14:11) Blistering Past Medical History - Past Medical History Cardiac Medical History: Denies: Hx Heart Attack, Hx Hypertension Pulmonary Medical History: Reports: Hx Pneumonia - HX OF Denies: Hx Asthma, Hx Bronchitis, Hx COPD Neurological Medical History: Reports: Hx Migraine, Hx Seizures - 1 FROM [facility] Endocrine Medical History: Reports: Hx Hypothyroidism Renal/ Medical History: Reports: Hx Ovarian Cysts. Denies: Hx Peritoneal Dialysis Musculoskeltal Medical History: Denies Hx Arthritis, Denies Hx Systemic Lupus Erythematosus Psychiatric Medical History: Reports: Hx Bipolar Disorder, Hx Depression Past Surgical History: Reports: Hx Appendectomy, Hx Section - x2, Hx Cholecystectomy, Hx Tonsillectomy - Immunizations Hx Diphtheria, Pertussis, Tetanus Vaccination: Yes History of Influenza Vaccine for 01/2017 - 06/2017 Season: Yes Influenza Administration Date for 01/2017 - 06/2017 Season: 02/05/18 Physical Exam - Vital signs Vitals: Temp Pulse Resp BP Pulse Ox 98.8 F 65 18 132/79 H 100 09/21/18 12:40 09/21/18 12:40 09/21/18 12:40 09/21/18 12:40 09/21/18 12:40 Course - Vital Signs Vital signs: Temp Pulse Resp BP Pulse Ox 98.8 F 65 18 132/79 H 100 09/21/18 12:40 09/21/18 12:40 09/21/18 12:40 09/21/18 12:40 09/21/18 12:40 Doctor's Discharge - Discharge Referrals: PROSPER GARCIA FNP-C [Primary Care Provider] - Follow up as needed
[2018-09-21 13:22] LABS: ABSOLUTE EOSINOPHILS # (AUTO) 0.1 10^3/uL (0.0-0.6); ABSOLUTE LYMPHOCYTES (AUTO) 1.3 10^3/uL (0.5-4.7); ABSOLUTE MONOCYTES (AUTO) 0.2 10^3/uL (0.1-1.4); ABSOLUTE NEUT (AUTO) 3.6 10^3/uL (1.7-8.2); APPEARANCE,URINE CLEAR; BASOPHILS % (AUTO) 0.5 % (0-2); BILIRUBIN,URINE NEGATIVE (NEGATIVE); COLOR,URINE YELLOW; EOSINOPHILS % (AUTO) 1.4 % (0-6); GLUCOSE, URINE NEGATIVE (NEGATIVE); HEMATOCRIT 38.4 % (36.0-47.0); HEMOGLOBIN 12.6 g/dL (12.0-15.5); KETONES,URINE NEGATIVE (NEGATIVE); LEUKOCYTE ESTERASE,URINE NEGATIVE (NEGATIVE); MEAN CORPUSCULAR HEMOGLOBIN 30.3 pg (27.0-33.4); MEAN CORPUSCULAR HGB CONC 32.9 g/dL (32.0-36.0); MEAN CORPUSCULAR VOLUME 92 fl (80-97); MONOCYTES % (AUTO) 4.7 % (3-13); NITRITE,URINE NEGATIVE (NEGATIVE); PLATELET COUNT 274 10^3/uL (150-450); PROTEIN,URINE NEGATIVE (NEGATIVE); RED BLOOD COUNT 4.16 10^6/uL (3.72-5.28); RED CELL DISTRIBUTION WIDTH 12.6 % (11.5-14.0); SEGMENTED NEUTROPHILS % (AUTO) 68.4 % (42-78); TOTAL CELLS COUNTED % (AUTO) 100 %; URINE SPECIFIC GRAVITY 1.004; UROBILINOGEN,URINE NEGATIVE mg/dL (<2.0); WHITE BLOOD COUNT 5.2 10^3/uL (4.0-10.5)
[2018-09-21 13:37] LABS: ACETAMINOPHEN < 10 ug/mL (10-30); ALANINE AMINOTRANSFERASE 13 U/L (9-52); ALBUMIN 4.5 g/dL (3.5-5.0); ALCOHOL < 10 mg/dL (NONE DETECTED); ALKALINE PHOSPHATASE 64 U/L (38-126); ANION GAP 13 (5-19); ASPARTATE AMINO TRANSFERASE 19 U/L (14-36); BILIRUBIN,DIRECT 0.3 mg/dL (0.0-0.4); BILIRUBIN,TOTAL 0.4 mg/dL (0.2-1.3); BLOOD UREA NITROGEN 8 mg/dL (7-20); CALCIUM 9.8 mg/dL (8.4-10.2); CARBON DIOXIDE 27 mmol/L (22-30); CHLORIDE 99 mmol/L (98-107); GLUCOSE 91 mg/dL (75-110); POTASSIUM 4.1 mmol/L (3.6-5.0); SALICYLATE < 1.0 mg/dL (2.0-20.0); SODIUM 139.2 mmol/L (137-145); TOTAL PROTEIN 7.4 g/dL (6.3-8.2); URINE AMPHETAMINES SCREEN NEGATIVE; URINE BARBITURATES SCREEN NEGATIVE; URINE BENZODIAZEPINES SCREEN NEGATIVE; URINE COCAINE SCREEN NEGATIVE; URINE MARIJUANA (THC) SCREEN NEGATIVE; URINE METHADONE SCREEN NEGATIVE; URINE PHENCYCLIDINE SCREEN NEGATIVE
--- NOTE | 2018-09-21 14:02 | EKG REPORT ---
SEVERITY:- ABNORMAL ECG - LEFT AXIS DEVIATION SINUS RHYTHM : Confirmed by: Maria E Novoa MD 21-Sep-2018 14:01:57
[2018-09-21] MEDS ORDERED: ONDANSETRON 4 MG TAB.RAPDIS PO ONE (17:03)
[2018-09-21] MEDS ORDERED: LORAZEPAM 1 MG TABLET PO ONE (17:08)
--- NOTE | 2018-09-21 17:48 | ER Document Report ---
ED General - General TRAVEL OUTSIDE OF THE [place] IN LAST 30 DAYS: No <CHARLES BRYAN - Last Filed: 09/21/18 17:43> <MIKE HAMMER - Last Filed: 09/22/18 10:05> <ARSH JENKINS - Last Filed: 09/22/18 10:33> - General Chief Complaint: Dizziness Stated Complaint: DIZZINESS Time Seen by Provider: 09/21/18 12:42 Primary Care Provider: [facility] [Provider Group] - Follow up as needed [facility] [Outside] - Follow up in 1 week PROSPER GARCIA FNP-C [Primary Care Provider] - Follow up as needed Notes: E provider note: Patient is a 52-year-old female with a history of bipolar and other mental health disorder who presents complaining of feeling cloudy, occasional dizziness, nauseous, and some confusion for the past 6 days since her medicines were changed. Patient states that she will at times forget a conversation, but has not had any other issues with confusion. Patient states that she was increased on her Lamictal, but was not able to function with that and made symptoms worse. Patient states that she did not feel this bad until her medicine started getting adjusted. Patient states that she has felt anxious re cently. She has been able to eat and drink, but does have a decreased appetite. She is urinating normally and having normal bowel movements. No SI/HI. Denies MUÑOZ, fever, changes in vision, neck pain, URI, CP, SOB, Abd pain, or rash. My HPI: Patient is expressing generalized concern for the change in her psychiatric medications. States she feels as though maybe she should not have come to the emergency room. States she is very confident with her psychiatrist. States her psychiatrist has been on vacation which is why her medications were changed in the last week. States she in the past had had low sodium and was feeling the same way which is why she presents to the emergency room. States she initially just wanted her blood drawn. Patient is denying any chest pain, shortness of breath, headache, numbness, tingling, weakness, dizziness at time of my evaluation. Psychiatric services has evaluated the patient has had made the recommendations already. (CHARLES BRYAN) - Related Data Allergies/Adverse Reactions: ampicillin [Ampicillin] Allergy (Severe, Verified 05/24/18 14:11) Anaphylaxis ciprofloxacin [From Cipro] Allergy (Severe, Verified 05/24/18 14:11) Anaphylaxis ciprofloxacin HCl [From Cipro] Allergy (Severe, Verified 05/24/18 14:11) Anaphylaxis diphenhydramine HCl [From Benadryl] Allergy (Severe, Verified 05/24/18 14:11) Anxiety lurasidone [From Latuda] Allergy (Severe, Verified 05/24/18 14:11) Anaphylaxis Penicillins Allergy (Severe, Verified 05/24/18 14:11) Anaphylaxis Sulfa (Sulfonamide Antibiotics) Allergy (Severe, Verified 05/24/18 14:11) Anaphylaxis haloperidol [From Haldol] Adverse Reaction (Severe, Verified 05/24/18 14:11) Anaphylaxis risperidone [From Risperdal] Adverse Reaction (Severe, Verified 05/24/18 14:11) Anaphylaxis ziprasidone [From Geodon] Adverse Reaction (Severe, Verified 05/24/18 14:11) Anaphylaxis latex Adverse Reaction (Verified 05/24/18 14:11) Blistering Past Medical History - General Information source: Patient - Social History Smoking Status: Unknown if Ever Smoked Chew tobacco use (# tins/day): No Frequency of alcohol use: None Drug Abuse: None Family History: Reviewed & Not Pertinent Patient has suicidal ideation: No Patient has homicidal ideation: No - Past Medical History Cardiac Medical History: Denies: Hx Heart Attack, Hx Hypertension Pulmonary Medical History: Reports: Hx Pneumonia - HX OF Denies: Hx Asthma, Hx Bronchitis, Hx COPD Neurological Medical History: Reports: Hx Migraine, Hx Seizures - 1 FROM [facility] Endocrine Medical History: Reports: Hx Hypothyroidism Renal/ Medical History: Reports: Hx Ovarian Cysts. Denies: Hx Peritoneal Dialysis Musculoskeletal Medical History: Denies Hx Arthritis, Denies Hx Systemic Lupus Erythematosus Psychiatric Medical History: Reports: Hx Bipolar Disorder, Hx Depression Past Surgical History: Reports: Hx Appendectomy, Hx Section - x2, Hx Cholecystectomy, Hx Tonsillectomy - Immunizations Hx Diphtheria, Pertussis, Tetanus Vaccination: Yes Hx Pneumococcal Vaccination: 04/28/15 <CHARLES BRYAN - Last Filed: 09/21/18 17:43> Review of Systems - Review of Systems Constitutional: denies: Fever EENT: No symptoms reported Cardiovascular: No symptoms reported Respiratory: No symptoms reported Gastrointestinal: No symptoms reported Genitourinary: No symptoms reported Female Genitourinary: No symptoms reported Musculoskeletal: No symptoms reported Skin: No symptoms reported Hematologic/Lymphatic: No symptoms reported Neurological/Psychological: See HPI <DONNIEDAVIDACHARLES - Last Filed: 09/21/18 17:43> Physical Exam <MELISSA BRYANEDISONJUAN R - Last Filed: 09/21/18 17:43> - Vital signs Vitals: Temp Pulse Resp BP Pulse Ox 98.8 F 65 18 132/79 H 100 09/21/18 12:40 09/21/18 12:40 09/21/18 12:40 09/21/18 12:40 09/21/18 12:40 - Notes Notes: GENERAL: Alert, interacts well. No acute distress. HEAD: Normocephalic, atraumatic. EYES: Pupils equal, round, and reactive to light. Extraocular movements intact. ENT: Oral mucosa moist, tongue midline. NECK: Full range of motion. Supple. Trachea midline. LUNGS: Clear to auscultation bilaterally, no wheezes, rales, or rhonchi. No respiratory distress. HEART: Regular rate and rhythm. No murmur ABDOMEN: Soft, non-tender. Non-distended. Bowel sounds present in all 4 quadrants. EXTREMITIES: Moves all 4 extremities spontaneously. No edema, normal radial and dorsalis pedis pulses bilaterally. No cyanosis. BACK: no cervical, thoracic, lumbar midline tenderness. No saddle anesthesia, normal distal neurovascular exam. NEUROLOGICAL: Alert and oriented x3. Normal speech. cranial nerves II through XII grossly intact PSYCH: flat affect, depressed mood. SKIN: Warm, dry, normal turgor. No rashes or lesions noted. (CHARLES BRYAN) Course - Laboratory Result Diagrams: 09/21/18 13:06 09/21/18 13:06 <CHARLES BRYAN - Last Filed: 09/21/18 17:43> - Laboratory Result Diagrams: 09/21/18 13:06 09/21/18 13:06 <MIKE HAMMER - Last Filed: 09/22/18 10:05> - Laboratory Result Diagrams: 09/21/18 13:06 09/21/18 13:06 <ARSH JENKINS - Last Filed: 09/22/18 10:33> - Re-evaluation Re-evalutation: Patient continues to deny suicidal ideations, homicidal ideations. Patient is relieved to know that her laboratory evaluations have all come back normal. psychiatric services have evaluated the patient they are recommending to change the patient's Topamax to 100 mg 4 times daily, Zyprexa 5 mg twice daily, Cogentin 1 mg 4 times daily. They are also suggesting to DC patient's Ativan, trazodone, Vistaril, Lamictal. I discussed this at length with patient at bedside. Psychiatric services has recommended the patient stay in the emergency department overnight as a voluntary commitment to evaluate her in the morning due to the change in her medications. 09/21/18 17:47 At this point time I have discussed this at length with the patient at bedside. Psychiatric services has also been in the room to discuss this with patient. Patient is agreeable with plan but is stating she is very anxious. I have discussed giving her Ativan. Patient states she would like something to eat and also some Zofran. States she feels a little bit nauseated. All medications have been ordered and administered at this time. Patient resting comfortably. At this time patient is currently a voluntary psychiatric hold until the morning. (CHARLES BRYAN) - Vital Signs Vital signs: Temp Pulse Resp BP Pulse Ox 98.2 F 80 18 112/70 100 09/22/18 09:45 09/22/18 09:45 09/22/18 09:45 09/22/18 09:45 09/22/18 09:45 - Laboratory Laboratory results interpreted by me: 09/21/18 13:06 Salicylates < 1.0 L Acetaminophen < 10 L Discharge <CHARLES BRYAN - Last Filed: 09/21/18 17:43> <MIKE HAMMER - Last Filed: 09/22/18 10:05> <ARSH JENKINS - Last Filed: 09/22/18 10:33> - Discharge Clinical Impression: Medication reaction Qualifiers: Encounter type: initial encounter Qualified Code(s): T50.905A - Adverse effect of unspecified drugs, medicaments and biological substances, initial encounter Condition: Stable Disposition: HOME, SELF-CARE Additional Instructions: You have been evaluated by both medical and behavioral health providers while in the emergency department. You have been cleared from acute medical and ps ychiatric services. Given your report of physical symptoms (nausea, dizziness, inability to perform every day tasks as result) since your mental health provider made medications changes a week ago it is felt it is likely related to these changes. Adjustments have been made to assist with symptom discomfort. Drug Effects Your unpleasant symptoms may be due to a drug you're taking. These symptoms are a common side effect of the medicine. It's not a true allergy. We stop any unnecessary drugs when bothersome side effects occur. Sometimes we'll substitute a different type of drug. In other cases, we must continue the drug. If so, we try to find a way to decrease the side effects. Many side effects decrease with time. Call us if the symptoms don't go away. Follow-Up Plan: Your medications have been adjusted. Discontinued the following home medications: Ativan, Trazodone, Vistaril, Lamictal. Changed Topomax to 100MG daily (for migraines/mood) and Cogentin to 1MG daily 0to curb tremor side effects sometimes associated with medications like Zyprexa). Added Zyprexa 5MG twice a day (for mood stabilization/impulse control). You should only be taking the Zyprexa, Cogentin and Topomax until you follow up with outpatient mental health provider at [facility] ([facility]) within a week preferably. You have been provided the [facility] Mobile Crisis number for crisis, talk therapy and linkage to other supports/services. If your symptoms persist or worsen contact your physician immediately, utilize mobile crisis or return to the emergency department. Prescriptions: Benztropine Mesylate [Cogentin 1 mg Tablet] 1 mg PO DAILY #14 tablet Olanzapine [Zyprexa 5 mg Tablet] 5 mg PO Q12 #30 tablet Topiramate [Topamax 100 Mg Tablet] 100 mg PO DAILY #14 tablet Referrals: PROSPER GARCIA FNP-C [Primary Care Provider] - Follow up as needed [facility] [Provider Group] - Follow up as needed [facility] [Outside] - Follow up in 1 week
[2018-09-21] MEDS: BENZTROPINE MESYLATE 1 MG TABLET PO SCH (18:16)
[2018-09-21] MEDS: OLANZAPINE 5 MG TABLET PO SCH (18:16)
[2018-09-21] MEDS ORDERED: TOPIRAMATE 100 MG TABLET ONE (18:33)
[2018-09-21] MEDS: TOPIRAMATE 100 MG TABLET PO SCH (18:47)
--- NOTE | 2018-09-21 21:31 | PSYCHOLOGICAL NOTE ---
Psych Note - Psych Note Date seen by psych provider: 09/21/18 Psych Note: Diagnosis: Bipolar by History Medication recommendations made by the psychiatric medical provider, Dr. Liseth MD., includes: Discontinue home medications of: Ativan, Trazodone, Vistaril, Lamictal Change Topomax to 100MG daily for mood stabilization/headaches Change Cogentin to 1MG daily to curb tremor side effects often associated with antipsychotic medications Add Zyprexa 5MG twice a day for mood stabilization/psychosis/impulse control Impression/Plan: Recommendation to hold patient overnight. She reported physical (nausea, dizziness, interfering with ability to perform everyday tasks) issues and noted medication changes last Friday by outpatient provider Dr. Higgins at [facility]. Medication adjustments have been recommended. If tolerated well plan to discharge tomorrow. Consulted with Dr. Barrera regarding the management and care of patient. ED Physician in agreement with recommendations.
[2018-09-22] MEDS: BENZTROPINE MESYLATE 1 MG TABLET PO SCH ×2 (00:37→09:30)
[2018-09-22] MEDS: TOPIRAMATE 100 MG TABLET PO SCH ×2 (00:38→09:30)
--- NOTE | 2018-09-22 09:16 | ER Document Report ---
Doctor's Note Notes: 09/22/18 09:15 52-year-old female with medication changes with some mild dizziness and cloudiness since the change of medications. Labs as recorded. Vital signs are stable. The psychiatric/psychology team is attempting to adjust her medications. Vital signs are stable. Labs as recorded. 09/22/18 10:30 The psychiatry/psychology team is seen and assessed the patient. They believe that the patient is medically stable to go and does not meet IVC criteria at this time. Patient denies any suicidal or homicidal ideations. She is very comfortable with this plan. They have change the patient's medications until she is able to follow-up with her psychiatrist who is currently on vacation. She is very happy with these changes. I will write a two-week prescription.
[2018-09-22] MEDS: OLANZAPINE 5 MG TABLET PO SCH (09:30)
[2018-09-22 09:46] VITALS: BP 112/70
--- NOTE | 2018-09-22 10:05 | PSYCHOLOGICAL NOTE ---
Psych Note - Psych Note Date seen by psych provider: 09/22/18 Psych Note: Diagnosis: Bipolar by History Impression/Plan: Patient is cleared from acute psychiatric services. She was an overnight mental health observation due to reported physical complaints (nausea, dizziness, inability to perform every tasks as result) with psychiatric medication changes that took place last week by provider at [facility]. Medications were adjusted last evening and she seemed to tolerate them well as evidenced by no report or observation of side effects. Patient instructed to follow up with provider at [facility] as soon as possible. Patient reported her follow up appointment with Dr. Higgins at [facility] is 09/28/18. Patient provided with outpatient MH resource sheet which highlighted [facility] M[facility] for crisis/talk therapy/linkage to other services/supports, as well as documented followup with [facility]. Care coordinated with [facility] via faxed patient referral form to them regarding medication changes. provided transportation, made aware of medication changes, informed of resource sheet with [facility] MCM number and that patient need to follow up with provider at [facility] as scheduled. Consulted Dr. Barrera regarding the management and care of patient. ED Physician in agreement with recomm endations.
== END 2018-09-22 12:22 | disposition home or self-care (01) ==
LOC: ER 12:18
DX: R42 Dizziness and giddiness (principal); R41.0 Disorientation, unspecified; R11.0 Nausea; R63.0 Anorexia; T50.905A Adverse effect of unspecified drugs, medicaments and biological substances, initial encounter; F31.9 Bipolar disorder, unspecified; Z79.899 Other long term (current) drug therapy; Z87.892 Personal history of anaphylaxis; Z88.0 Allergy status to penicillin; Z88.1 Allergy status to other antibiotic agents; Z88.8 Allergy status to other drugs, medicaments and biological substances; Z88.2 Allergy status to sulfonamides
CPT/HCPCS: 93005; 99285; 36415; 80307 ×4; 85025; 80053; 81001; 93010; A9270 ×8; J3490; S0119